=== PATIENT | male | born 1950 | race Two or more races ===

== ENCOUNTER 2022-11-14 13:51 | Outpatient (CLI) | payer OTHER | END 2022-11-16 14:54 | disposition home or self-care (01) | LOC: MRI 13:51 | PROVIDERS: ATTEND Orthopaedic Surgery | DX: M25.561 Pain in right knee (principal); M25.562 Pain in left knee | CPT/HCPCS: 73721 ==

== ENCOUNTER 2025-02-16 14:48 | Outpatient (CLI) | payer OTHER | END 2025-02-16 15:14 | disposition home or self-care (01) | LOC: MRI 14:48 | PROVIDERS: ATTEND Orthopaedic Surgery | DX: M25.561 Pain in right knee (principal); M25.562 Pain in left knee | CPT/HCPCS: 73718 ==